=== PATIENT | female | born 1945 ===

== ENCOUNTER 2017-06-12 14:48 | Emergency (ER) | payer OTHER, MEDICARE ==
[2017-06-12 15:02] VITALS: O2SAT 98
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
[2017-06-12 17:07] VITALS: BP 126/78; PULSE 78; RESP 19; TEMP 97.6
== END 2017-06-12 17:07 | disposition home or self-care (01) ==
LOC: H.ER 14:48
DX: M54.2 Cervicalgia (principal); V43.62XA Car passenger injured in collision with other type car in traffic accident, initial encounter; Y92.410 Unspecified street and highway as the place of occurrence of the external cause; E78.00 Pure hypercholesterolemia, unspecified; I10 Essential (primary) hypertension